=== PATIENT | female | born 1990 | race Caucasian/White ===

== ENCOUNTER 2023-06-22 09:41 | Outpatient (CLI) | payer OTHER, SELFPAY ==
--- NOTE | ~2023-06-22 | MMUS_ITS ---
EXAMINATION: MM diag hao implant BI w donnell, US breast BI limited HISTORY: Bilateral milky nipple discharge, history of prolactinoma TECHNIQUE: Craniocaudal, mediolateral, and mediolateral oblique 3-D tomosynthesis images with implant displacement of the breasts were performed and synthetic 2-D images were generated. Craniocaudal, m ediolateral oblique, and mediolateral views of the breasts without implant displacement were obtained using full field digital mammography. CAD analysis was submitted and interpreted. High resolution li mited bilateral breast ultrasound was performed. COMPARISON: None, baseline BREAST PARENCHYMAL COMPOSITION: There are scattered areas of fibroglandular density. FINDINGS: MAMMOGRAPHIC FINDINGS: No suspicious mass, calcification, or architectural distortion are identified in either breast to sug gest malignancy. No mammographic correlate is identified for the patient's reported bilateral nipple discharge. ULTRASOUND: No sonographic correlate is identified for the patient's reported bilateral nipple discharge. IMPRESSION: 1. No specific mammographic or sonographic correlate is identified for the patient's bilateral nipple discharge. Further evaluation at this time should be based on clinical assessment. Continued follow- up physical examination is recommended. Consider surgical evaluation. BI-RADS Category 1: Negative Reviewed, dictated and finalized at location A. IMPRESSION: 1. No specific mammographic or sonographic correlate is identified for the katharina ent's bilateral nipple discharge. Further evaluation at this time should be [facility] ed on clinical assessment. Continued follow-up physical examination is recommen ded. Consider surgical evaluation. BI-RADS Category 1: Negative
== END 2023-06-22 09:42 | disposition home or self-care (01) ==
DX: N64.3 Galactorrhea not associated with childbirth (principal); N64.52 Nipple discharge; Z86.018 Personal history of other benign neoplasm
CPT/HCPCS: 76642; 77062; 77066; G0279